=== PATIENT | female | born 1970 | race Hispanic/Latino ===

== ENCOUNTER 2018-11-22 05:59 | Day surgery (SDC) | payer MEDICARE ==
[2018-11-22] MEDS ORDERED: NACL 0.9% 1000 ML 1,000 ML IV SCH (06:00)
[2018-11-22] MEDS ORDERED: ANCEF/STERILE WATER 2 GM/20 ML 2 GM/20 ML SYRINGE IV NR (06:00)
[2018-11-22 07:13] LABS: Hematocrit 41.4 % (30.3-42.9); Hemoglobin 14.6 gm/dl (10.1-14.3); Mean Corpuscular HGB Conc 35 % (30-34); Mean Corpuscular Volume 92 fl (79-97); Platelet Count 167 K/mm3 (140-440); Red Blood Count 4.51 M/mm3 (3.65-5.03)
[2018-11-22 07:25] LABS: INR 0.92 (0.87-1.13)
[2018-11-22 07:26] LABS: Partial Thromboplastin Time 23.2 Sec. (24.2-36.6)
[2018-11-22 07:57] LABS: BUN/Creatinine Ratio 26; Blood Urea Nitrogen 13 mg/dL (7-17); Calcium 8.9 mg/dL (8.4-10.2); Hemolysis Index 42
[2018-11-22] MEDS ORDERED: HEPARIN 10,000 UNITS/10 ML ONE (08:14)
[2018-11-22] MEDS ORDERED: HEPARIN/NS 5000 UNIT/500ML(CATH LAB) 500 ML IR ONE (08:14)
[2018-11-22] MEDS: VERSED ONE ×3 (08:37→08:55)
[2018-11-22] MEDS: XYLOCAINE 2% INFILTRATI ONE ×3 (08:37→08:43)
[2018-11-22] MEDS: SUBLIMAZE ONE ×3 (08:37→08:55)
[2018-11-22 08:41] LABS: Anisocytosis 1+; Platelet Estimate Consistent w Auto; Total Cells Counted 100
[2018-11-22] MEDS ORDERED: TORADOL ONE (08:56)
--- NOTE | 2018-11-22 09:08 | Short Stay Summary ---
Short Stay Documentation Date of service: 11/22/18 - History Principal diagnosis: venous compression H&P: obtained from office - Allergies and Medications Current Medications: Allergies codeine Adverse Reaction (Verified 11/22/18 08:52) Dizziness rizatriptan [From Maxalt] Adverse Reaction (Verified 11/22/18 08:52) Dizziness Home Medications Medication Instructions Recorded Confirmed Last Taken Type Albuterol Sulfate [Ventolin Hfa] 1 puff IH Q4H PRN 11/22/18 11/22/18 Unknown History Dextroamphetamine Sulfate 15 mg PO QID 11/22/18 11/22/18 11/22/18 04:30 History [Dexedrine] HYDROcodone/ACETAMINOPHEN 1 tab PO PRN PRN 11/22/18 11/22/18 Unknown History [Hydrocodone-Acetamin 10-325 mg] Ondansetron [Zofran ODT TAB] 8 mg PO PRN PRN 11/22/18 11/22/18 Unknown History Active Medications Cefazolin Sodium (Ancef/Sterile Water 2 Gm/20 Ml) 2 gm in 20 mls @ 80 mls/hr IV PREOP NR; Protocol Stop: 11/22/18 23:59 Sodium Chloride (Nacl 0.9% 1000 Ml) 1,000 mls @ 42 mls/hr IV DIRECT ROBERTO Last Admin: 11/22/18 07:43 Dose: 42 mls/hr Documented by: - Brief post op/procedure progress note Date of procedure: 11/22/18 Pre-op diagnosis: Venous compression Post-op diagnosis: same Procedure: BLE venogram, IVUS, Venoplasty and stent placement Anesthesia: local Surgeon: KLEVER ALEXANDRA Estimated blood loss: minimal Pathology: none Condition: stable - Disposition Condition at discharge: Good Disposition: [id number] TO HOME OR SELFCARE Short Stay Discharge Plan Activity: advance as tolerated Weight Bearing Status: Weight Bear as Tolerated Diet: regular Wound: keep clean and dry, per your surgeon's advice Follow up with: PRIMARY CARE, [Primary Care Provider] - 7 Days
--- NOTE | 2018-11-22 09:17 | Operative Report ---
Operative Report Operative Report: Exam: Bilateral lower extremity venogram, intravascular ultrasound, venoplasty with stent placement Clinical indication: Patient with extrinsic compression of the common iliac veins Date: 11/22/2018 Procedure: Following an explanation of the risks, benefits and alternatives; written informed consent was obtained. The patient was brought to the angiographic and placed in supine position on the examination table. Initial ultrasound evaluation of the legs demonstrated patent greater saphenous veins bilaterally. The patient's groin and proximal legs were prepped and draped in the usual sterile fashion. One percent lidocaine was used for anesthesia. Under ultrasound guidance, the right greater saphenous vein was cannulated proximally using a 7 cm 18-gauge needle. A 0.035 guidewire was advanced centrally. The needle was removed and a 5 [place] sheath placed. Access was obtained in the left proximal greater saphenous vein in a similar fashion and an additional 5 [place] sheath placed. Venography was performed through the sheaths. This demonstrates significant extrinsic compression of the left common iliac vein at its origin and also the distal left common iliac vein. Significant compression is also identified involving the mid right common iliac vein. A decision was made to evaluate fu rther with intravascular ultrasound. The sheaths were upsized over the guidewires to 10 [place] sheaths bilaterally. Intravascular ultrasound was performed through the right sheath from the IVC to the sheath insertion site. Intravascular ultrasound was performed to the left sheath from the IVC to the sheath insertion site. Imaged vessels include the IVC, right common iliac vein, right external iliac vein, right common femoral vein, left common iliac vein, left external iliac vein and left common femoral vein. Findings include 70% stenosis of the left common iliac vein at its origin and a separate 50% stenosis involving the distal left common iliac vein. 60% stenosis is involving the midportion of the right common iliac vein. Prestenotic dilatation is present. The remaining visualized veins are widely patent. A 16 mm x 90 mm wall stent was advanced through the right sheath, a 16 mm x 90 mm wall stent was advanced to the left sheath. The stents were deployed in kissing fashion from the distal IVC to the external iliac veins bilaterally. The stents were then seated using 14 mm balloons at multiple locations. Postintervention imaging demonstrated brisk flow throughout the pelvis with residual less than 10% stenosis. The guidewires and sheaths were removed and hemostasis achieved using manual compression. A sterile compression dressing was applied. The patient tolerated the procedure well. There were no immediate post procedure complications. Conscious sedation was performed under the guidance of radiologic nursing. Continuous cardiopulmonary monitoring was utilized. Impression: Bilateral lower extremity venogram demonstrating significant compression of the left common iliac vein and right common iliac vein. 2) Iintravascular ultrasound of the IVC, bilateral common iliac veins, bilateral external iliac veins in bilateral common femoral veins demonstrating 70% stenosis of the proximal left common iliac vein, a separate 50% stenosis involving the distal left common iliac vein, and a 60% stenosis is present involving the midportion of the right common iliac vein. 3) Treatment of these lesions with kissing 16 mm x 90 mm wall stents with residual less than 10% stenosis.
[2018-11-22] MEDS ORDERED: PERCOCET 5/325 ONE (09:39)
[2018-11-22] MEDS ORDERED: PERCOCET 5/325 PO ONE (09:45)
[2018-11-22 11:37] VITALS: BP 144/72
== END 2018-11-22 11:50 | disposition home or self-care (01) ==
LOC: CATHLABREC 05:59
PROVIDERS: ATTEND Radiology Diagnostic Radiology
DX: I87.1 Compression of vein (principal); I87.2 Venous insufficiency (chronic) (peripheral); I87.329 Chronic venous hypertension (idiopathic) with inflammation of unspecified lower extremity; K21.9 Gastro-esophageal reflux disease without esophagitis; D64.9 Anemia, unspecified; G43.909 Migraine, unspecified, not intractable, without status migrainosus; G47.30 Sleep apnea, unspecified; J45.909 Unspecified asthma, uncomplicated; F17.290 Nicotine dependence, other tobacco product, uncomplicated; Z79.899 Other long term (current) drug therapy; Z79.01 Long term (current) use of anticoagulants; Z88.5 Allergy status to narcotic agent; Z88.8 Allergy status to other drugs, medicaments and biological substances; Z98.51 Tubal ligation status; Z90.49 Acquired absence of other specified parts of digestive tract; Z98.890 Other specified postprocedural states; Z80.9 Family history of malignant neoplasm, unspecified
CPT/HCPCS: 36415; 37238; 37239; 37252; 37253; 75822; 76937; 80048; 85007; 85025; 85610; 85730; 99156; 99157; C1725; C1753; C1876; C1894; J1644; J1885; J2250; J3010; J7030; Q9967